=== PATIENT | male | born 1965 | race Caucasian/White ===

== ENCOUNTER 2017-09-19 06:12 | Inpatient (IN) | payer OTHER ==
[~2017-09-19] VITALS: Ht 180.3 cm; Wt 71.2 kg
[~2017-09-19 06:12] MED LIST: IBUP-232 PO; TYLETAB34 PO
[2017-09-19] MEDS ORDERED: LACTATED RINGER'S 1000 ML IV PRN (06:30)
[2017-09-19] MEDS ORDERED: CHLORHEXIDINE GLUCONATE 2 % 1 PACK (2 CLOTHS) TOPICAL PRN (06:30)
[2017-09-19] MEDS ORDERED: METOPROLOL TARTRATE 25 MG TAB PO PRN (06:30)
[2017-09-19] MEDS ORDERED: SODIUM CHLORID 0.9% 500 ML IV PRN (06:30)
[2017-09-19] MEDS ORDERED: ceFAZolin 2 GM PREMIX 50 ML IV SCH (06:45)
[2017-09-19] MEDS ORDERED: POVIDONE IODINE 7.5% SCRUB 118 ML BOTTLE TOPICAL SCH (06:45)
[2017-09-19] MEDS ORDERED: EXPAREL PERI-ARTICULAR INJECTION (TOTAL VOL. 60 ML) P-ARTICULR SCH ×2 (06:45)
[2017-09-19] MEDS ORDERED: TRANEXAMIC ACID INJ 710 MG in SODIUM CHLORIDE 0.9% INJ 100 ML IV SCH ×4 (06:45)
[2017-09-19] MEDS ORDERED: GENTAMICIN SULFATE 80 MG/2 ML VIAL ONE (07:04)
[2017-09-19] MEDS: VANCOMYCIN 1000 MG/NS 250 ML (for <70 kg) IV SCH ×4 (10:08→11:17)
[2017-09-19] MEDS ORDERED: PROPOFOL 500 MG/50 ML INJ 100 ML ONE (10:22)
[2017-09-19] MEDS ORDERED: LACTATED RINGER'S 1000 ML INJ 1,000 ML IV ONE (12:00)
[2017-09-19] MEDS ORDERED: ROCURONIUM INJ 50 MG/5 ML SYRINGE IV PUSH ONE (12:00)
[2017-09-19] MEDS ORDERED: ONDANSETRON HCL 4 MG/2 ML VIAL IV ONE (12:00)
[2017-09-19] MEDS ORDERED: LIDOCAINE HCL 1% PF 5 ML SYRINGE OTHER ONE (12:00)
[2017-09-19] MEDS ORDERED: PROPOFOL 200 MG/20 ML AMP IV ONE (12:00)
[2017-09-19] MEDS ORDERED: DEXAMETHASONE SOD PHOS 4 MG/ML VIAL IV ONE (12:00)
[2017-09-19] MEDS ORDERED: Post-op Orders (for Pharmacy) XX ONE (13:15)
[2017-09-19] MEDS ORDERED: MISCELLANEOUS NURSING INFORMATION XX PRN (13:15)
[2017-09-19] MEDS ORDERED: TEMAZEPAM 15 MG CAP PO PRN (13:15)
[2017-09-19] MEDS ORDERED: ASPIRIN 81 MG CHEW TAB CHEW ONE (13:15)
[2017-09-19] MEDS ORDERED: NALOXONE HCL 0.4 MG/ML AMP IV PUSH PRN (13:15)
[2017-09-19] MEDS ORDERED: oxyCODONE/ACETAMINOPHEN 5 MG/325 MG TAB PO PRN (13:15)
--- NOTE | 2017-09-19 13:16 | PD.OP ---
cc: Santi Dias MD Operative Report Date of Surgery: Sep 19, 2017 Preoperative Diagnosis: Osteoarthritis right knee. Status post multi-ligamentous injury with repair, remote. Retained hardware of the left proximal tibia and distal femur Postoperative Diagnosis: Same Procedure: Right total knee replacement arthroplasty. Removal of multiple fixation devices of the proximal tibia and distal femur Anesthesia: Gen. with regional block Surgeon: Santi Dias Wellness Coach(s): SAI Morillo Operation and Findings: EBL: 300 cc INDICATION: This patient presents with long-standing arthritis of the knee. The patient has had previous surgery of his right knee with a midline incision from multi-ligamentous injury. The patient has evidence of significant instability persisting of the right knee. He now presents for conversion to total knee replacement. Attachment record documents conservative measures. NOTE: Kena Morillo PA-C was present for the entire surgical procedure as my content assistant. In my medical opinion her skill and care was necessary for proper management of this patient. TOURNIQUET TIME: 72 minutes COMPANY: [employer] FEMUR: Size 4, posterior stabilized TIBIA: Size 4, fixed bearing PATELLA: 38 mm POLYETHYLENE INSERT: 9 mm PROCEDURE: This patient was brought the operating room and anesthetized in the supine position. The patient was positioned supine on the table. The tourniquet was placed about the thigh, and the leg was scrubbed with alcohol followed by Hibiclens followed by ChloraPrep and draped sterilely. A timeout was done, and antibiotics were given. After exsanguination the tourniquet was inflated to 250 mmHg. An anterior incision was made and a median parapatellar arthrotomy was performed. A portion of the previous incision was excised. The patella was released laterally and subluxed allowing freehand cut of the patella which was then sized. A metal cap was placed over the exposed patellar surface for protection. A rotor pilot hole was placed in the distal femur allowing a 5 valgus cut removing 10 mm from the distal femur. Anterior posterior and chamfer cuts were made. The posterior stabilize osteotomy was made. The attention was directed to the tibia. Retractors were positioned. The external alignment guide was used allowing the lateral tibia to be used as referencing guide and cut utilizing an oscillating saw taking care to avoid any injury to the surrounding soft tissues. There were 2 retained screws in the proximal tibia which were removed retrograde without difficulty. It was a significant cystic region in the proximal tibia. This was sized properly. Trial reduction showed that the insert fit nicely. The patient had range of motion extension 0 flexion 120. A medial release and posterior medial corner release was necessary. The bony surfaces prepared. On the back table 2 packets of methylmethacrylate were mixed. The components were cemented. Excess cement was removed. The tourniquet let down and hemostasis was controlled. The final plastic insert was inserted. Range of motion was the same as previously noted. A drain was brought through a separate stab incision. The arthrotomy was repaired with interrupted #1 Vicryl suture, subcutaneous tissue 2-0 Vicryl suture and skin with metallic fabian A sterile dressing was applied. Sponge counts, needle counts and instrument counts were all correct. The patient tolerated procedure well and was taken to recovery in satisfactory condition. FINDINGS: There was significant instability. The previous medial collateral ligament injury had been repaired. We needed to tension this and do a partial release of the MCL with the knee in flexion. This allowed satisfactory balancing the knee both in flexion and extension based on the MCL position and there was a chronic lateral ligamentous laxity of the knee. No complication was appreciated. Santi Dias MD Sep 19, 2017 13:16
[2017-09-19] MEDS ORDERED: OXYC1TAB63 PO (13:19)
[2017-09-19] MEDS ORDERED: ASPI81 CHEW (13:19)
[2017-09-19] MEDS ORDERED: DO NOT ADM ANY ANTICOAGULANT DRUGS PRN (13:40)
[2017-09-19] MEDS ORDERED: LACTATED RINGER'S 1000 ML INJ 1,000 ML IV SCH (14:00)
[2017-09-19] MEDS ORDERED: SODIUM CHLORIDE 0.9% IV SCH (14:00)
[2017-09-19] MEDS ORDERED: TRANEXAMIC ACID IV SCH (14:00)
--- NOTE | 2017-09-19 15:16 | RADRPT ---
EXAM DATE/TIME: 09/19/2017 14:00 [facility] COMPARISON: No previous studies available for comparison. INDICATIONS : Post op right knee surgery MEDICAL HISTORY : None. SURGICAL HISTORY : previous right knee surgeries per pt ENCOUNTER: Initial ACUITY: 1 day PAIN SCORE: 5/10 LOCATION: Right knee FINDINGS: Two view examination of the right knee demonstrates post surgical changes following knee replacement. Prosthetic components are well seated and satisfactorily aligned. Surgical drain is identified in th e suprapatellar bursa. CONCLUSION: Satisfactory postoperative appearance of the right knee following a replacement. Chirag Dasilva MD on September 19, 2017 at 15:14 Board Certified Radiologist. This report was verified electronically.
[2017-09-19 16:00] VITALS: BP 159/93; PULSE 55; RESP 18; TEMP 97.1; O2SAT 100
[2017-09-19] MEDS: oxyCODONE/ACETAMINOPHEN 5 MG/325 MG TAB PO PRN ×2 (18:21→22:14)
[2017-09-19 20:06] VITALS: BP 150/81; PULSE 71; RESP 18; TEMP 98.8; O2SAT 99
[2017-09-19] MEDS ORDERED: SENNOSIDES 8.6 MG TAB PO SCH (21:00)
[2017-09-19] MEDS: ASPIRIN 81 MG CHEW TAB CHEW SCH (21:08)
[2017-09-19] MEDS: MAGNESIUM HYDROXIDE SUSP 30 ML CUP PO SCH (21:08)
[2017-09-19] MEDS ORDERED: WALKER WHEELS/F1 MIS (23:19)
[2017-09-19] MEDS ORDERED: COMMODE 3-IN-11 MIS (23:19)
[2017-09-19] MEDS ORDERED: CPMMACHINE (23:20)
--- NOTE | 2017-09-19 23:20 | HHI.DCPOC ---
Discharge Care Plan Diagnosis: (1) Osteoarthritis of right knee Your Health Problems Are: Difficulty with ADL Incision/Drains Swelling Goals to Promote Your Health * To prevent worsening of your condition and complications * To maintain your health at the optimal level Directions to Meet Your Goals Take your medications as prescribed Follow your dietary instruction Follow activity as directed Keep your appointments as scheduled Take your immunizations and boosters as scheduled If your symptoms worsen call your PCP, if no PCP go to Urgent Care Center or Emergency Room Smoking is Dangerous to Your Health. Avoid second hand smoke Call the 24-hour hour crisis hotline for domestic abuse at Mercedes Rodriguez Sep 19, 2017 23:20
--- NOTE | 2017-09-19 23:22 | HHI.FF ---
Face to Face Verification Diagnosis: (1) Osteoarthritis of right knee Physical Therapy Gait training, Safety evaluation, Transfer training, bed to chair Knee: Total knee, Protocol: Right, Full weight bearing Canvas Knee Splint: When in bed & 2 pillows btw thighs Right LE Weight Bearing: WB as tolerated Additional Instructions PT 4 days/wk for 2 weeks. WBAT RLE. TKA protocol. CPM bid as tolerated, 0-60 with goal of 100 flexion. CKS when in bed for 3 weeks. Nursing RN Days per Week: 2 x Week(s): 1 Dressing Changes: Do not change dressing Additional Instructions Vitals assessment. Dressing assessment - do not change unless saturated or erythema. I have seen patient Rene Buckley on 09/19/17. My clinical findings support the need for the requested home health care services because: Limited ability to care for self High risk of falls I certify that my clinical findings support that this patient is homebound because: Post-op weakness Unsteady gait/balance Mercedes Rodriguez Sep 19, 2017 23:22
--- NOTE | 2017-09-19 23:26 | HHI.DS ---
Discharge Summary Admission Date Sep 19, 2017 at 06:12 Discharge Date: Sep 20, 2017 Admitting Diagnosis see below Diagnosis: (1) Osteoarthritis of right knee Diagnosis: Principal ICD Codes: M17.11 - Unilateral primary osteoarthritis, right knee Procedures Right total knee arthroplasty Brief History This is a 51 year old male patient with a multi-year history of right knee pain related to his service. 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 He has multiple arthroscopic knee surgeries including a complicated ACL reconstruction. He developed increasing knee pain over the years. This escalated rapidly over the last 4 months. He has had previous treatment including physical therapy, NSAIDs and use of a brace. Surgical treatment was recommended in the form of right total knee arthroplasty. The patient agreed and now presents for the above. Hospital Course Surgical treatment was performed on the day of admission without complication. He recovered well in PACU and was transferred to the orthopaedic floor. Pain was controlled with IV and oral medications. He was compliant wiht physical therapy and his CPm machine. He was found to exit the building on 2 occasions and walk to the parking lot. The staff did not know why. After 1 day he was found to be stable and discharged home with home health care. He was educated to continue his CPM, to use his CKS at night and to take his percocet as needed for pain. He was given outpatient prescriptions of percocet and ASA 81 mg 2 tabs daily. Pt Condition on Discharge: Stable Discharge Disposition: Disch w/ Home Health Serv Discharge Instructions Diet Instructions: As Tolerated, No Restrictions, High Fiber Diet Activities You Can Perform: Weight Bearing as Marybeth Activities to Avoid: Strenuous Activity Additional Activity Instruc.: TKA protocol. CPM as written. New Medications: Commode 3-in-1 (Commode 3-in-1) 1 Mis Mis EA .ROUTE DIRECTED, #1 0 Refills CPM-Continuous Passive Motion Machine (CPM-Continuous Passive Motion Machine) 1 Ea Device EA .ROUTE DIRECTED, #1 0 Refills Walker with Front Wheels (Walker with Front Wheels) 1 Mis Mis EA .ROUTE DIRECTED, #1 0 Refills Aspirin (Tgt Aspirin) 81 Mg Chw 81 MG CHEW BID for Prevent Blood Clot for 30 Days, EA Oxycodone HCl/Acetaminophen (Oxycodone-Acetaminophen 5-325) 5 Mg-325 Mg Tablet 1 TAB PO Q4H PRN for PAIN MDD 50, #50 TAB Continued Medications: Acetaminophen-Codeine (Tylenol-Codeine #3) 300-30 mg Tab 1-2 TAB PO BID PRN for PAIN, TAB 0 Refills Discontinued Medications: Ibuprofen (Ibuprofen) 600 Mg Tab 600 MG PO TID for Arthritis Pain, TAB 0 Refills Mercedes Rodriguez Sep 19, 2017 23:26
[2017-09-19 23:54] VITALS: BP 121/73; PULSE 72; RESP 19; TEMP 98.2; O2SAT 99
[2017-09-20 03:35] VITALS: BP 111/66; PULSE 65; RESP 19; TEMP 98.1; O2SAT 98
[2017-09-20 07:15] LABS: HEMATOCRIT 29.2 % (39.0-51.0); HEMOGLOBIN 10.2 GM/DL (13.0-17.0)
[2017-09-20 08:00] VITALS: BP 113/71; PULSE 56; RESP 16; TEMP 97.7; O2SAT 99
[2017-09-20 09:47] VITALS: O2SAT 98
[2017-09-20] MEDS: oxyCODONE/ACETAMINOPHEN 5 MG/325 MG TAB PO PRN ×2 (10:03→14:02)
[2017-09-20] MEDS: MAGNESIUM HYDROXIDE SUSP 30 ML CUP PO SCH (10:03)
[2017-09-20] MEDS: ASPIRIN 81 MG CHEW TAB CHEW SCH (10:03)
[2017-09-20 11:04] VITALS: BP 120/80; PULSE 66; RESP 16; TEMP 99; O2SAT 99
--- NOTE | 2017-09-20 13:10 | PD.ORT.PN ---
Subjective Subjective Remarks He is doing well. He states his pain is well controlled. He states he walked out to the parking lot earlier today. He denies any new radiating leg pain, chest pain or shortness of breath. Objective Vitals Vital Signs Date Time Temp Pulse Resp B/P (MAP) Pulse Ox O2 Delivery O2 Flow Rate FiO2 09/20/17 09:47 98 09/20/17 08:00 97.7 56 16 113/71 (85) 99 09/20/17 03:35 98.1 65 19 111/66 (81) 98 09/19/17 23:54 98.2 72 19 121/73 (89) 99 09/19/17 20:06 98.8 71 18 150/81 (104) 99 09/19/17 16:00 97.1 55 18 159/93 (115) 100 09/19/17 14:45 97.5 41 14 146/89 (108) 100 Room Air 09/19/17 14:30 47 14 137/93 (108) 100 Nasal Cannula 2 09/19/17 14:15 45 14 136/92 (107) 100 Nasal Cannula 2 09/19/17 14:00 36 14 137/92 (107) 100 Nasal Cannula 2 09/19/17 13:45 50 14 131/87 (102) 100 Nasal Cannula 2 09/19/17 13:39 97.5 66 14 131/88 (102) 100 Nasal Cannula 4 I/O 09/19/17 09/19/17 09/19/17 09/20/17 09/20/17 09/20/17 07:00 15:00 23:00 07:00 15:00 23:00 Intake Total 1800 ml 360 ml 360 ml Output Total 4300 ml 280 ml 360 ml Balance -2500 ml 80 ml 0 ml Intake Oral 360 ml 360 ml IV Total 1800 ml Output Urine Total 1000 ml Drainage Total 280 ml 360 ml Estimated Blood Loss 300 ml Other 3000 ml # Voids 4 2 # Bowel Movements 1 0 Result Diagram: 09/20/17 0630 Procedures Right total knee arthroplasty Objective Remarks Sitting up in bed NAD VSS RLE Knee dressing c/d/i, drain in place lateral, mild swelling, no erythema +motor at, +sens, +nvi neg homans Assessment & Plan Ortho Post Op Day #: 1 Problem List: (1) Osteoarthritis of right knee ICD Codes: M17.11 - Unilateral primary osteoarthritis, right knee Qualifiers: Qualified Codes: M17.31 - Unilateral post-traumatic osteoarthritis, right knee Assessment and Plan pod#1 s/p R TKA Ortho stable. Ok to d/c home w [facility] today. D/C right knee drain. Ok to redress drain site only. Hold dressing changes otherwise. ASA 81mg bid for 15 days. PT - WBAT RLE. CPM bid as tolerated. Walker as needed. Percocet written outpatient. F/U in 2 weeks as scheduled. F2F written. Mercedes Rodriguez Sep 20, 2017 13:10
== END 2017-09-20 14:13 | disposition home health service (06) | DRG 470 ==
LOC: HSDI 06:12 → N06B 15:06
PROVIDERS: ADMIT Orthopaedic Surgery Orthopaedic Surgery of the Spine; ATTEND Orthopaedic Surgery Orthopaedic Surgery of the Spine
PROC: 0QPJ04Z Removal of Internal Fixation Device from Right Fibula, Open Approach (ICD-10-PCS; 2017-09-19)
PROC: 0QPG04Z Removal of Internal Fixation Device from Right Tibia, Open Approach (ICD-10-PCS; 2017-09-19)
PROC: 3E0T3BZ Introduction of Anesthetic Agent into Peripheral Nerves and Plexi, Percutaneous Approach (ICD-10-PCS; 2017-09-19)
PROC: 0SRC0J9 Replacement of Right Knee Joint with Synthetic Substitute, Cemented, Open Approach (ICD-10-PCS; principal; 2017-09-19 10:13)
DX: M17.31 Unilateral post-traumatic osteoarthritis, right knee (principal); F17.200 Nicotine dependence, unspecified, uncomplicated; M25.361 Other instability, right knee; Z91.041 Radiographic dye allergy status; Z98.1 Arthrodesis status
CPT/HCPCS: 73560; 85014; 85018; 86850; 86900; 86901; 86920; 94150; C1776; C9290; J0690; J1100; J1580; J2405; J3370; J7050; J7120; L1830